=== PATIENT | female | born 1975 | race Caucasian/White ===

== ENCOUNTER 2019-07-08 05:45 | Observation (INO) | payer MEDICARE ==
[2019-07-03 13:56] LABS: BASOPHILS % 0.6 % (0.0-1.0); EOSINOPHILS # (AUTO) 0.1 (0.0-0.4); EOSINOPHILS % 1.9 % (0.0-6.0); HEMOGLOBIN 12.7 g/dL (12.0-16.0); LYMPHOCYTES # (AUTO) 1.8 (1.0-3.2); LYMPHOCYTES % 24.9 % (18.0-39.1); MEAN CORPUSCULAR HEMOGLOBIN 30.8 pg (28-32); MEAN CORPUSCULAR HGB CONC 33.4 g/dL (31-35); MONOCYTES # (AUTO) 0.4 (0.2-0.8); MONOCYTES % 5.8 % (4.4-11.3); NEUTROPHILS # (AUTO) 4.7 (2.1-6.9); NEUTROPHILS % 66.5 % (38.7-80.0); PLATELET COUNT 239 x10e3/uL (140-360); RED BLOOD COUNT 4.13 x10e6/uL (3.6-5.1); RED CELL DISTRIBUTION WIDTH 11.7 % (11.7-14.4)
[2019-07-03 13:57] LABS: BILIRUBIN,URINE NEGATIVE (NEGATIVE); CLARITY,URINE SL CLOUDY (CLEAR); COLOR,URINE YELLOW (YELLOW); KETONES,URINE NEGATIVE (NEGATIVE); LEUKOCYTE ESTERASE ,URINE NEGATIVE (NEGATIVE); NITRITE,URINE NEGATIVE (NEGATIVE); PROTEIN,URINE DIPSTICK NEGATIVE (NEGATIVE); URINE UROBILINOGEN 0.2 mg/dL (0.2 - 1)
[2019-07-03 14:42] LABS: HIV 1&2 AB SCREEN NON-REACTIVE (NONREACTIVE)
--- NOTE | 2019-07-03 14:46 | Diagnostic Imaging Report ---
Exam: PA and lateral chest radiograph Clinical history: Preoperative clearance Findings: There is no evidence of pulmonary consolidation, pleural effusion, or pneumothorax. Thoracolumbar spinal rods are partially visualized. Otherwise, the regional osseous structures are unremarkable. Impression: 1. No radiographic evidence of acute cardiorespiratory disease. Signed by: Dr. Jeremiah Tyler MD on 07/03/2019 2:43 PM
[~2019-07-08] VITALS: Ht 160 cm; Wt 66.7 kg
[~2019-07-08 05:45] MED LIST: HYDROXYZINE HCL10 MG PO; PROMETHAZINE HC25 M1 PO; TIZANIDINE HCL4 MG PO
--- OUTSIDE RECORDS SUMMARY | 2019-07-08 05:53 | XMS REPORT | Continuity of Care Document ---
Author Author [employer] Organization [employer] Address Unknown Phone Unavailable Care Team Providers Care Through Operator Name Role Phone [employer] Unavailable Unavailable Problems Problem Status Onset Date Classification Date Reported Comments Source Mastodynia 05/22/2018 12/02/2018 [facility] [employer]'s N64.4 - MASTODYNIA Active 05/08/2018 [employer] Unspecified lump in the left breast, unspecified quadrant 12/02/2018 [facility] [employer] [facility] Family history of malignant neoplasm of breast 12/02/2018 [facility] [employer] [facility] Medications No Data Provided for This Section Allergies, Adverse Reactions, Alerts No Known Medication Allergies Immunizations No Data Provided for This Section Results No Data Provided for This Section Pathology Reports No Data Provided for This Section Diagnostic Reports Report Value Date Source Breast Complete Uni US COMPLETE ULTRASOUND OF LEFT BREAST AND AXILLA: 05/15/2018 CLINICAL: /N64.4 Mastodynia HISTORY: 43 yo female with left axillary tenderness and swelling x 1year and more pain in the past 2 months. Patient walks with a cane using her right arm. Family history of BREAST cancer: (p) aunt. No prior breast surgeries or biopsies. /Mastodynia. COMPARISON:No prior exams were available for comparison. LEFT BREAST AND AXILLA FINDINGS: The entire left breast was evaluated including all four quadrants, axillary tail, subareolar region and axilla. Directed imaging of the palpable area of concern pointed out by the patient in the left axilla showed only fibrofatty tissues and normal appearing lymph nodes. No abnormalities that would be suspicious for malignancy were identified. No axillary adenopathy. IMPRESSION: BENIGN 1. NO DEFINITE MAMMOGRAPHIC EVIDENCE OF MALIGNANCY IN EITHER BREAST. 2. DIRECTED IMAGING OF THE PALPABLE AREA OF CONCERN POINTED OUT BY THE PATIENT IN THE LEFT AXILLA SHOWED ONLY FIBROFATTY TISSUES WITHOUT EVIDENCE OF A TRUE MASS. NO AXILLARY ADENOPATHY. RECOMMENDATION: 1. PROVIDING HER CLINICAL AND SELF-EXAMINATIONS REMAIN STABLE AND THERE IS NO INTERVAL WORSENING OF HER SYMPTOMALOGY, A BILATERAL MAMMOGRAM IN ONE YEAR. 2. ALSO, IF THE LEFT AXILLARY PALPABLE AREA CONTINUES TO BE A SOURCE OF CONCERN, SUGGEST SHE RETURN FOR FURTHER EVALUATION WITH AN MRI. I personally reviewed the imaging findings and recommendations with the patient. I emphasized to her to practice monthly self-examinations and to return immediately if she should note any concerning changes. This exam was interpreted at [id number] for [facility]. Gloria Chicas M.D. sg/:05/16/2018 14:59:06 Hat Maker(s): Tanya Magallanes, [facility]; Earnestine Hart, [facility] letter sent: BI-RADS 1/2 Ultrasound BI-RADS: 2 Benign 05/15/2018 [facility] Breast Mammo Diag ASHLEY incl CAD MA BILATERAL FIRST EVER DIGITAL DIAGNOSTIC MAMMOGRAM WITH CAD: 05/15/2018 CLINICAL: /N64.4 Mastodynia HISTORY: 43 yo female with left axillary tenderness and swelling x 1year and more pain in the past 2 months. Patient walks with a cane using her right arm. Family history of BREAST cancer: (p) aunt. No prior breast surgeries or biopsies. /Mastodynia. Current study was evaluated with a Computer Aided Detection (CAD) system. COMPARISON:No prior exams were available for comparison. TECHNIQUE: Mammographic views were obtained using digital acquisition. Current study was also evaluated with a Computer Aided Detection (CAD) system. FINDINGS: There are scattered fibroglandular densities in both breasts. LEFT axillary view shows a mild fatty bulge but no adenopathy or suspicious finding. No significant masses, calcifications, or other findings are seen in either breast. IMPRESSION: INCOMPLETE: NEEDS ADDITIONAL IMAGING EVALUATION PLEASE SEE SAME DAY ULTRASOUND REPORT. This exam was interpreted at [id number] for [facility] [employer] [facility]. Gloria Chicas M.D. sg/:05/16/2018 14:59:06 Hat Maker(s): Tanya Magallanes, [facility]; Earnestine Hart, [facility] letter sent: BI-RADS 1/2 Mammogram BI-RADS: 0 Indeterminate 05/15/2018 [facility] Consultation Notes No Data Provided for This Section Discharge Summaries No Data Provided for This Section History and Physicals No Data Provided for This Section Vital Signs No Data Provided for This Section Encounters Location Location Details Encounter Type Encounter Number Reason For Visit Attending Provider ADM Date DC Date Status Source [facility] Outpatient [facility] - [facility] [id number] Pettyivorykaren Kvng 05/15/2018 05/16/2018 [facility] Procedures No Data Provided for This Section Assessment and Plan No Data Provided for This Section Plan of Care No Data Provided for This Section Social History Social History Date Source No data available for this section 05/16/2018 [facility] Family History No Data Provided for This Section Advance Directives No Data Provided for This Section Functional Status No Data Provided for This Section
--- OUTSIDE RECORDS SUMMARY | 2019-07-08 05:53 | XMS REPORT | Clinical Summary ---
Author Author [employer] [facility] [employer] Address Unknown Phone Unavailable Care Team Providers Care Auto Body Shop Manager Name Role Phone Lior Calderon MD PCP Allergies Comments Active Allergy Reactions Severity Noted Date Penicillins 01/09/2017 Sulfa (Sulfonamide 01/09/2017 Antibiotics) Medications End Date Status Medication Sig Dispensed Refills Start Date Active lidocaine (LIDODERM) 5 % Place 1 patch 0 on the skin daily. Remove & Discard patch within 12 hours or as directed by MD Active sertraline (ZOLOFT) 25 MG Take 25 mg by 0 tablet mouth daily. Active diazePAM (VALIUM) 5 MG Take 5 mg by 0 tablet mouth every 6 (six) hours as needed for anxiety. Active morPHINE (MS CONTIN) 100 Take 100 mg 0 MG 12 hr tablet by mouth 2 (two) times a day. Active HYDROcodone-acetaminophen Take 1 tablet 0 (NORCO) 10-325 mg per by mouth tablet every 6 (six) hours as needed for moderate pain. Active tiZANidine (ZANAFLEX) 4 Take 4 mg by 0 MG tablet mouth every 8 (eight) hours as needed for muscle spasms. Active morPHINE (MSIR) 30 MG Take 30 mg by 0 tablet mouth every 4 (four) hours as needed for severe pain. Active Problems No known active problems Encounters Care Team Description Date Type Specialty Loly Castillo MA 06/19/2019 Prep for Orthopedic Surgery Surgery Espinoza Terrazas MD 05/19/2019 Hospital Radiology Encounter Espinoaz Terrazas MD Other kyphosis of thoracolumbar region (Primary Dx); Pseudoarthrosis of lumbar spine; Scoliosis (and kyphoscoliosis), idiopathic 05/19/2019 Office Visit Orthopedic Surgery Cedric Harding PA-C Chronic low back pain without sciatica, unspecified back pain laterality (Primary Dx); Sagittal plane imbalance; Degeneration of intervertebral disc of lumbar region; Adjacent segment disease with kyphosis; Degenerative scoliosis in adult patient 04/21/2019 Office Visit Orthopedic Surgery after 07/07/2018 Family History Medical History Relation Name Comments Hypertension Father Thyroid disease Mother Clotting disorder Neg Hx Relation Name Status Comments Father Mother Social History Date Tobacco Use Types Packs/Day Years Used Started: 01/09/1993 Current Every Day Smoker Cigarettes 0.25 22 Smokeless Tobacco: Never Used Drinks/Week oz/Week Comments Alcohol Use Yes Sex Assigned at Date Recorded Not on file Industry Job Start Date Occupation Not on file Not on file Not on file Travel End Travel History Travel Start No recent travel history available. Last Filed Vital Signs Reading Time Taken Comments Vital Sign 127/79 05/19/2019 10:27 AM CDT Blood Pressure 59 05/19/2019 10:27 AM CDT Pulse 36.6 C (97.9 F) 05/19/2019 10:27 AM CDT Temperature - - Respiratory Rate - - Oxygen Saturation - - Inhaled Oxygen Concentration - - Weight - - Height - - Body Mass Index Plan of Treatment Care Team Description Date [place] [address] 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 Degenerative scoliosis in adult patient CT ABD/PELVIC EXTERNAL Routine 12/11/2018 STUDY 12:53 PM SAND CONDITIONER after 07/07/2018 Results * XR Spine Scoliosos 2-3 Views (04/21/2019 10:43 AM CDT) Specimen Narrative Performed At [facility] AP lateral scoliosis x-ray shows instrumentation from the mid thoracic spine to the distal lumbar spine there is hardware with dominoes through the upper lumbar spine.There is an axial screw through the sacrum and L4 with significant lucency.Comparison CT was reviewed which showed 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 Performing Organization Address City/State/Zipcode Phone Number [employer] [facility] [address] [place] [address] * CT Abd/Pelvic External Study (12/11/2018 12:53 PM SAND CONDITIONER) Specimen Narrative Performed At This exam was not acquired at a [facility] facility and has not been [facility] interpreted by a [employer] Provider.The exam was imported into our imaging system for comparisons purposes. Performing Organization Address City/State/Zipcode Phone Number [employer] [facility] [address] [place] [address] after 07/07/2018 Insurance Type Payer Benefit Subscriber ID Effective Phone Address Plan / Dates Group HMO AETNA MEDICARE AETNA xxxxxxxx 2018-P MEDICARE resent HMO/PPO [facility] [place] [address] Advance Directives For more information, please contact: [phone] Patient Structures Assembler Explanation Type Date Recorded Advance Directives, Living Will and Medical Power of Property Inspector
--- OUTSIDE RECORDS SUMMARY | 2019-07-08 05:53 | XMS REPORT | Summary of Care ---
Author Author [facility] Address Unknown Phone Unavailable Encounter HQ Dieter(FIN) [id number] Date(s): 05/15/18 - 05/15/18 [facility] Outpatient Imaging - [facility] [address] [place] [phone] Encounter Diagnosis Mastodynia (Final) - 05/21/18 Unspecified lump in the left breast, unspecified quadrant (Final) - Family history of malignant neoplasm of breast (Final) - Discharge Disposition: Home or Self Care Attending Physician: Lior Calderon MD Referring Physician: Lior Calderon MD Vital Signs No data available for this section Problem List No data available for this section Allergies, Adverse Reactions, Alerts No data available for this section Medications No data available for this section Results No data available for this section Immunizations No data available for this section Procedures No data available for this section Social History No data available for this section Assessment and Plan No data available for this section
--- OUTSIDE RECORDS SUMMARY | 2019-07-08 05:53 | XMS REPORT ---
Author Author [facility] Address Unknown Phone Unavailable Care Team Providers Care Life Insurance Agent Name Role Phone Tashia HUDSON Unavailable Unavailable Payers Payer Name Policy Type Policy Number Effective Date Expiration Date Problems This patient has no known problems. Allergies, Adverse Reactions, Alerts Allergy Name Allergy Type Status Severity Reaction(s) Onset Date Inactive Date Treating Clinician Comments Penicillins DA Active AR 2016-09-24 00:00:00 Sulfa (Sulfonamide Antibiotics) DA Active U 2016-09-24 00:00:00 Medications This patient has no known medications. Results Test Description Test Time Test Comments Text Results Atomic Results Result Comments CHEST 2 VIEWS 2019-07-03 14:38:00 [place] [address] Patient Name: MAUREEN PARIS MR #: [id number] : 1975 Age/Sex: 44/F Req #: [id number] Adm Physician: Ordered by: NORRIS HUDSON MD Report #: [id number] Location: OR Room/Bed: Procedure: [id number] DX/CHEST 2 VIEWS Exam Date: 07/03/19 Exam Time: 1405 REPORT STATUS: Signed Exam: PA and lateral chest radiograph Clinical history: Preoperative clearance Findings: There is no evidence of pulmonary consolidation, pleural effusion, or pneumothorax. Thoracolumbar spinal rods are partially visualized. Otherwise, the regional osseous structures are unremarkable. Impression: 1. No radiographic evidence of acute cardiorespiratory disease. Signed by: Dr. Jeremiah Tyler MD on 07/03/2019 2:43 PM Dictated By: TRUONG TYLER MD 1443 Transcribed By: ANGELIA on 07/03/19 1443 COPY TO: NORRIS HUDSON MD - CT ABD PELVIS W/CONT 2019-05-29 23:11:00 FAX: Sheri Domingo [phone] [place]: St: REG Name: MAUREEN PARIS [facility] : 1975 Age/S: 44/F [address] [facility] [address] Unit: [id number] Loc: [place], [place] Phys: [place] [address] Acct: [id number] Dis Date: Status: REG CLI PHONE #: [phone] Exam Date: 05/29/2019 1824 FAX #: [phone] Reason: PELVIC PAIN, EXCESSIVE BLEEDING, DYSMENORRHEA EXAMS: CPT CODE: [id number] CT ABD PELVIS W/CONT 02391 Site ID: [id number] CLINICAL HISTORY: N92.4, N80.8 TECHNIQUE: Axial images of the abdomen and pelvis were obtained from diaphragm to the pubic symphysis with oral and intravenous contrast. CT dose lowering technique utilized, with adjustment of MA/kV according to patient size and automated exposure control. COMPARISON: Pelvic ultrasound of the same day, CT abdomen and pelvis May 02, 2018 DISCUSSION: The lung bases are clear. The heart size is normal. The liver is normal in size and contour, without focal abnormality. The gallbladder is unremarkable. No biliary ductal dilatation. The spleen, pancreas and adrenal glands are unremarkable. Both kidneys are normal in size. No hydronephrosis or enhancing renal mass. Vascular structures are normal in caliber and appearance. Retroaortic left renal vein is noted. The small and large bowel are unremarkable. No abdominal, pelvic or retroperitoneal adenopathy. Uterus is normal in size, a 2 cm partially exophytic right fundal fibroid is present, obscured sonographically due to location adjacent to bowel. Within the left ovary, there are 2 small cysts measuring up to 2.5 cm, slightly higher than simple fluid density. No ascites. Urinary bladder is normal. Osseous structures are unchanged. IMPRESSION: 1. 2 cm partially exophytic right fundal fibroid, obscured sonographically due to location adjacent to bowel. PAGE 1 Signed Report (CONTINUED) FAX: Sheri Domingo [phone] [place]: St: REG Name: MAUREEN PARIS [facility] : 1975 Age/S: 44/F [address] [facility] [address] Unit: [id number] Loc: [place], [place]: [place] [address] Acct: [id number] Dis Date: Status: REG CLI PHONE #: [phone] Exam Date: 05/29/2019 1824 FAX #: [phone] Reason: PELVIC PAIN, EXCESSIVE BLEEDING, DYSMENORRHEA EXAMS: CPT CODE: [id number] CT ABD PELVIS W/CONT 93343 <Continued> 2. Within the left ovary, there are 2 small cysts measuring up to 2.5 cm, slightly higher than simple fluid density. at 2311 Reported and signed by: Phong Nair M.D. CC: Sheri Leyva MD Technologist: BRITTANY Hernandez Dt/Tm: 05/29/2019 (2311) [email or web address] Orig Print D/T: S: 05/29/2019 (8144 PAGE 2 Signed Report - DUP AB/PEL/SC COMP 2019-05-29 19:05:00 FAX: Sheri Domingo [phone] [place]: St: REG Name: [place] [facility] : 1975 Age/S: 44/F [address] [facility] Unit #: [id number] Loc: [place], [place]: [place] [address] Acct: [id number] Dis Date: Status: REG CLI PHONE #: [phone] Exam Date: 05/29/2019 1846 FAX #: [phone] Reason: primary dysmenorrhea EXAMS: CPT CODE: [id number] DUP AB/PEL/SC COMP 55863 ULTRASOUND OF THE PELVIS COMPLETE ULTRASOUND PELVIS TRANSVAGINAL DUPLEX PELVIS LIMITED Dictation Location: N13 CLINICAL HISTORY: Primary dysmenorrhea COMPARISON: None. TECHNIQUE: Ultrasound of the pelvis was obtained using transabdominal and transvaginal technique. Real-time grayscale, color and spectral Doppler imaging was performed. FINDINGS: The uterus measures 7.8 x 4.1 x 5.2 cm, normal in size, shape, and echogenicity. No evidence of enlargement or fibroids. No evidence of congenital anomalies. The endometrial stripe measures 1.1 cm, normal in thickness. Right ovary measures 2.7 x 2.9 x 5.1 cm. Left ovary measures 4.2 x 2.3 x 1.8 cm. Both ovaries are normal in size for the patient's age without suspicious masses or torsion. Normal arterial inflow and venous outflow of each ovary was demonstrated using spectral Doppler. No evidence of free fluid in the cul-de-sac. No separate pelvic mass is demonstrated. IMPRESSION: Normal pelvic ultrasound. at 1905 Reported and signed by: Sana Salter M.D. CC: Sheri Leyva MD Technologist: CAROL CARTER Trnscrd Date/Time/By: 05/29/20 19 (1904) : By: Chalino PAGE 1 Signed Report FAX: Sheri Domingo [phone] [place]: St: REG Name: MAUREEN PARIS [facility] : 1975 Age/S: 44/F [address] [facility] Unit #: [id number] Loc: [place], [place]: [place] [address] Acct: [id number] Dis Date: Status: REG CLI PHONE #: [phone] Exam Date: 05/29/2019 1846 FAX #: [phone] Reason: primary dysmenorrhea EXAMS: CPT CODE: [id number] DUP AB/PEL/SC COMP 40675 <Continued> Orig Print D/T: S: 05/29/2019 (1908) PAGE 2 Signed Report - US TRANSVAGINAL NON OB 2019-05-29 19:05:00 FAX: Sheri Domingo [phone] [place]: St: REG [facility] 1975 Age/S: 44/F [address] [facility] Unit #: [id number] Loc: [place], [place]: [place] [address] Acct: [id number] Dis Date: Status: REG CLI PHONE #: [phone] Exam Date: 05/29/2019 1845 FAX #: [phone] Reason: primary dysmenorrhea EXAMS: CPT CODE: [id number] [place] [address] ULTRASOUND OF THE PELVIS COMPLETE ULTRASOUND PELVIS TRANSVAGINAL DUPLEX PELVIS LIMITED Dictation Location: N13 CLINICAL HISTORY: Primary dysmenorrhea COMPARISON: None. TECHNIQUE: Ultrasound of the pelvis was obtained using transabdominal and transvaginal technique. Real-time grayscale, color and spectral Doppler imaging was performed. FINDINGS: The uterus measures 7.8 x 4.1 x 5.2 cm, normal in size, shape, and echogenicity. No evidence of enlargement or fibroids. No evidence of congenital anomalies. The endometrial stripe measures 1.1 cm, normal in thickness. Right ovary measures 2.7 x 2.9 x 5.1 cm. Left ovary measures 4.2 x 2.3 x 1.8 cm. Both ovaries are normal in size for the patient's age without suspicious masses or torsion. Normal arterial inflow and venous outflow of each ovary was demonstrated using spectral Doppler. No evidence of free fluid in the cul-de-sac. No separate pelvic mass is demonstrated. IMPRESSION: Normal pelvic ultrasound. at 1905 Reported and signed by: Sana Salter M.D. CC: Sheri Leyva MD Technologist: [id number] 1; CAROL CARTER Trnscrd Date/Time/By: 05/29/2019 (1905) : By: [email or web address] PAGE 1 Signed Report FAX: Sheri Domingo [phone] [place]: St: REG Name: MAUREEN PARIS [facility] : 1975 Age/S: 44/F [address] [facility] Unit #: [id number] Loc: [place], [place]: [place] [address] Acct: [id number] Dis Date: Status: REG CLI PHONE #: [phone] Exam Date: 05/29/2019 1845 FAX #: [phone] Reason: primary dysmenorrhea EXAMS: CPT CODE: [id number] [place] [address] <Continued> Orig Print D/T: S: 05/29/2019 (1908) PAGE 2 Signed Report - US PELVIS COMPLETE 2019-05-29 19:05:00 FAX: Sheri Domingo [phone] [place]: St: REG Name: MAUREEN PARIS [facility] : 1975 Age/S: 44/F [address] Unit #: [id number] Loc: [place]: [place] [address] Acct: [id number] Dis Date: Status: REG CLI PHONE #: [phone] Exam Date: 05/29/2019 1845 FAX #: [phone] Reason: primary dysmenorrhea EXAMS: CPT CODE: [id number] US PELVIS COMPLETE 85922 ULTRASOUND OF THE PELVIS COMPLETE ULTRASOUND PELVIS TRANSVAGINAL DUPLEX PELVIS LIMITED Dictation Location: N13 CLINICAL HISTORY: Primary dysmenorrhea COMPARISON: None. TECHNIQUE: Ultrasound of the pelvis was obtained using transabdominal and transvaginal technique. Real-time grayscale, color and spectral Doppler imaging was performed. FINDINGS: The uterus measures 7.8 x 4.1 x 5.2 cm, normal in size, shape, and echogenicity. No evidence of enlargement or fibroids. No evidence of congenital anomalies. The endometrial stripe measures 1.1 cm, normal in thickness. Right ovary measures 2.7 x 2.9 x 5.1 cm. Left ovary measures 4.2 x 2.3 x 1.8 cm. Both ovaries are normal in size for the patient's age without suspicious masses or torsion. Normal arterial inflow and venous outflow of each ovary was demonstrated using spectral Doppler. No evidence of free fluid in the cul-de-sac. No separate pelvic mass is demonstrated. IMPRESSION: Normal pelvic ultrasound. at 1905 Reported and signed by: Sana Salter M.D. CC: Sheri Leyva MD Technologist: CAROL CARTER Trnscrd Date/Time/By: 05/29/20 19 (1904) : By: CadyMVT PAGE 1 Signed Report FAX: Sheri Domingo [phone] [place]: St: REG Name: MAUREEN PARIS [facility] : 1975 Age/S: 44/F [address] [facility] Unit #: [id number] Loc: [place], [place]: [place] [address] Acct: [id number] Dis Date: Status: REG CLI PHONE #: [phone] Exam Date: 05/29/2019 1845 FAX #: [phone] Reason: primary dysmenorrhea EXAMS: CPT CODE: [id number] US PELVIS COMPLETE 16321 <Continued> Orig Print D/T: S: 05/29/2019 (2454) PAGE 2 Signed Report
--- OUTSIDE RECORDS SUMMARY | 2019-07-08 05:53 | XMS REPORT | Summary of Care ---
Author Author [facility] - Health Organization [facility] - Health Address Unknown Phone Unavailable Care Team Providers Care Dyeing Machine Back Tender Name Role Phone Iggy Mathew REMOTE CONTROL MIRROR INSTALLER PCP Unavailable Encounter Details Care Team Description Date Type Department Doctor Unassigned, [place] [address] [place] [address] 05/19/2019 Orders Only [facility] [address] [place] [address] Allergies Comments Active Allergy Reactions Severity Noted Date Penicillins Unknown - See 04/17/2006 comments Sulfa (Sulfonamide Unknown - See 04/17/2006 Antibiotics) comments documented as of this encounter (statuses as of 05/20/2019) Medications End Date Status Medication Sig Dispensed Refills Start Date Active LIDOCAINE 5 %(700 1 patch 0 MG/PATCH) TOPICAL PTMD daily; 12 hours on/12 hours off Active IBUPROFEN 600 MG ORAL TAB 1 tab TID 0 Active diazepam (VALIUM) 10 mg Take 10 mg by 0 tabletIndications: mouth 3 Ekbom's delusional (three) times parasitosis daily. Active morpHINE E.R. (MS CONTIN) Take 100 mg 0 100 mg SR by mouth tabletIndications: every 12 Ekbom's delusional (twelve) parasitosis hours. Active morpHINE I.R. (MSIR) 30 Take 30 mg by 0 mg tabletIndications: mouth every 4 Ekbom's delusional (four) hours parasitosis as needed. 1/2 tablet Active etodolac (LODINE) 400 mg Take 400 mg 0 tabletIndications: by mouth 2 Ekbom's delusional (two) times parasitosis daily. Active chlorhexidine (HIBICLENS) Apply to 120 mL 0 4 % external area(s) once 3 liquidIndications: daily as Ekbom's delusional needed for parasitosis Wound care. Active gabapentin enacarbil Take 300 mg 0 (HORIZANT) 300 mg TbSR by mouth 3 (three) times daily. Active tiZANidine (ZANAFLEX) 4 Take 4 mg by 0 mg capsule mouth 3 (three) times daily. Active doxepin (SINEQUAN) 10 mg TAKE 2 CAPS 60 Cap 5 capsule BY MOUTH AT 4 BEDTIME. Active SERTraline (ZOLOFT) 100 Take 1.5 Tabs 45 Tab 6 mg tabletIndications: by mouth 4 Depression daily. Active ranitidine (ZANTAC) 150 Take 1 Tab by 180 Tab 1 mg tabletIndications: mouth 2 (two) 4 Reflux times daily. Active butalbital-acetaminophen- Take 1 tablet 20 tablet 0 caff 50-325-40 mg tablet by mouth 8 every 4 (four) hours as needed for Pain (scale 1-3). Active ibuprofen 600 mg tablet Take 1 tablet 30 tablet 0 by mouth 8 every 6 (six) hours as needed for Pain (scale 1-3). Active naproxen 500 mg tablet Take 1 tablet 60 tablet 0 by mouth 2 8 (two) times daily with meals. Active nortriptyline 10 mg Take 1 90 capsule 0 capsule capsule by 8 mouth daily. Take 1 capsule daily for 5 days then 2 capsules for the next 5 days then take 3 capsules after that Active psyllium 1 full scoop 0 packetIndications: of metamucil 8 Diarrhea, unspecified and 4 ounces type (1/2 dose of water). Try this M, W F, 1 dose each day. Active Simethicone 125 mg Take 1 tablet 0 TabIndications: Gas bloat by mouth 2 8 syndrome (two) times daily. Active tizanidine HCl Take by 0 (TIZANIDINE ORAL) mouth. Active HYDROXYZINE HCL ORAL Take by 0 mouth. Active acetaminophen (TYLENOL 8 Take by 0 HOUR ORAL) mouth. 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 Kyphoscoliosis deformity of spine 05/19/2008 documented as of this encounter (statuses as of 05/20/2019) Resolved Problems Problem Noted Date Resolved Date Skin parasites 03/02/2013 03/02/2013 documented as of this encounter (statuses as of 05/20/2019) Social History Date Tobacco Use Types Packs/Day Years Used Former Smoker Cigarettes 1 20 Smokeless Tobacco: Current User Comments: Quit 5 months ago Drinks/Week oz/Week Comments Alcohol Use seldom Yes Sex Assigned at Date Recorded Not on file Industry Job Start Date Occupation Not on file Not on file Not on file Travel End Travel History Travel Start No recent travel history available. documented as of this encounter Last Filed Vital Signs Not on filedocumented in this encounter Plan of Treatment Health Maintenance Due Date Last Done Comments DTaP,Tdap,and Td Vaccines 1993 (1 - Tdap) MAMMOGRAM 2014 INFLUENZA VACCINE 06/21/2019 PAP SMEAR 03/17/2022 03/17/2019 PNEUMOCOCCAL 0-64 YEARS Aged Out No longer eligible based COMBINED SERIES on patient's age to complete this topic documented as of this encounter Procedures Comments Procedure Name Priority Date/Time Associated Diagnosis AUTHORIZATION FOR RELEASE Routine 05/19/2019 OF PHI 12:01 AM CDT documented in this encounter Results Not on filedocumented in this encounter Insurance Type Payer Benefit Subscriber ID Effective Phone Address Plan / Dates Group Medicare Adv PPO AETNA - MANAGED MEDICARE AETNA [id number] 2018- [address] MEDICARE Present [id number] [place] [id number] documented as of this encounter Advance Directives Patient Cigarette Tester Explanation Type Date Recorded Advance Directives and Living Will Power of Pile Driver Operator Barge Mounted
[2019-07-08] MEDS ORDERED: CEFOXITIN 2GM/ D5W 50ML 50 ML IV ONE (05:58)
[2019-07-08] MEDS ORDERED: METOCLOPRAMIDE HCL 10 MG/2ML VIAL ONE (06:53)
[2019-07-08] MEDS ORDERED: SODIUM CHLORIDE 0.9% 50ML 50 ML ONE (06:53)
[2019-07-08] MEDS ORDERED: FAMOTIDINE 20 MG/2 ML VIAL IV ONE (06:54)
[2019-07-08] MEDS ORDERED: IBUPROFEN 800MG/ 250ML 250 ML IV ONE (09:00)
[2019-07-08] MEDS ORDERED: BUPIVACAINE LIPOSOME/PF 266 MG/20 ML IJ ONE (09:16)
[2019-07-08] MEDS ORDERED: BUPIVACAINE 0.25%/EPI 30ML SDV INJ ONE (09:34)
[2019-07-08] MEDS ORDERED: MEPERIDINE HCL INJ 25 MG/ML VIAL ONE (10:12)
[2019-07-08] MEDS ORDERED: ACETAMINOPHEN 1000 MG/100 ML IV PRN ×2 (10:30→12:00)
[2019-07-08] MEDS ORDERED: ONDANSETRON HCL INJ 2MG/ML 2ML 2 MG/ML VIAL IV PRN (10:30)
[2019-07-08] MEDS ORDERED: NALOXONE HCL INJ 0.4 MG/ML AMP IV PRN (10:30)
[2019-07-08] MEDS ORDERED: HYDROMORPHONE 0.2MG/ML-SOD CHL 30ML PCA SYRINGE IV PRN ×2 (10:30→12:00)
[2019-07-08] MEDS ORDERED: KETOROLAC TROMETHAMINE 30 MG/ML VIAL IV PRN (10:30)
[2019-07-08] MEDS: KETOROLAC TROMETHAMINE 30 MG/ML VIAL IV PRN ×3 (10:31→20:30)
[2019-07-08] MEDS ORDERED: KETOROLAC TROMETHAMINE 30 MG/ML VIAL ONE ×2 (10:34→20:00)
--- OUTSIDE RECORDS SUMMARY | 2019-07-08 11:06 | XMS REPORT | Clinical Summary ---
Author Author [facility] Address Unknown Phone Unavailable Care Team Providers Care Drum Tender Name Role Phone Lior Calderon MD PCP [...] Espinoza Terrazas MD 05/19/2019 Hospital Radiology Encounter Espinoza Terrazas MD Other kyphosis of thoracolumbar region [...] Description Date [place] [address] [facility] [address] [place] [address] [phone] 07/28/2019 Office Visit Orthopedic Surgery Health Maintenance [...] ABD/PELVIC EXTERNAL Routine 12/11/2018 STUDY 12:53 PM HARNESS REPAIRER after 07/07/2018 Results * XR Spine Scoliosos [...] noted. Performing Organization Address City/State/Zipcode Phone Number [email or web address] [address] [place] [address] * CT Abd/Pelvic External Study (12/11/2018 12:53 PM HARNESS REPAIRER) Specimen Narrative Performed At This exam was not acquired at a [facility] facility and has not been [facility] interpreted by a [facility] Provider.The exam was imported into our imaging system for comparisons purposes. Performing Organization Address City/State/Zipcode Phone Number [email or web address] [address] [place] [address] after 07/07/2018 Insurance Type Payer Benefit Subscriber ID Effective Phone Address Plan / Dates Group HMO AETNA MEDICARE AETNA xxxxxxxx 2018-P MEDICARE resent HMO/PPO [facility] ([place]) [place] [address] Advance Directives For more information, please contact: [phone] Patient Head Loft Worker Explanation Type Date Recorded Advance Directives, Living Will and Medical Power of Machine Bender
--- OUTSIDE RECORDS SUMMARY | 2019-07-08 11:06 | XMS REPORT | Continuity of Care Document ---
Author Author [facility] Organization [facility] Address Unknown Phone Unavailable Care Team Providers Care Chemical Engraver Name Role Phone [facility] [employer] Unavailable Unavailable Problems Problem Status Onset Date Classification Date Reported Comments Source Mastodynia 05/22/2018 12/02/2018 [facility] [employer] N64.4 - MASTODYNIA Active 05/08/2018 [facility] Unspecified lump in the left breast, unspecified quadrant 12/02/2018 [facility] [employer] [facility] Family history of malignant neoplasm of breast 12/02/2018 [facility] [employer] [facility] Medications No Data Provided for This [...] concerning changes. This exam was interpreted at [id number] for [facility] [employer] [facility]. Gloria Chicas M.D. sg/:05/16/2018 14:59:06 Sole Molding Machine Operator(s): Tanya Magallanes, [facility]; Earnestine Hart, [facility] letter sent: BI-RADS 1/2 Ultrasound BI-RADS: 2 Benign 05/15/2018 [facility] Breast Mammo Diag ASHLEY incl [...] ULTRASOUND REPORT. This exam was interpreted at [id number] for [facility] [employer] [facility]. Gloria Chicas M.D. sg/:05/16/2018 14:59:06 Sole Molding Machine Operator(s): Tanya Magallanes, [facility]; Earnestine Hart, [facility] letter sent: BI-RADS 1/2 Mammogram BI-RADS: 0 Indeterminate 05/15/2018 [facility] Consultation Notes No Data Provided for This Section Discharge Summaries No Data Provided for This Section History and Physicals No Data Provided for This Section Vital Signs No Data Provided for This Section Encounters Location Location Details Encounter Type Encounter Number Reason For Visit Attending Provider ADM Date DC Date Status Source [facility] - [facility] [id number] [facility] 05/15/2018 05/16/2018 [facility] Procedures No Data Provided for This Section Assessment and Plan No Data Provided for This Section Plan of Care No Data Provided for This Section Social History Social History Date Source No data available for this section 05/16/2018 [facility] Family History No Data Provided for This Section Advance Directives No Data Provided for This Section Functional Status No Data Provided for This Section
[2019-07-08 11:49] VITALS: BP 99/62
[2019-07-08 12:04] VITALS: BP 99/62
[2019-07-08 12:10] VITALS: BP 99/62
--- NOTE | 2019-07-08 12:21 | NUR ---
patient received from OR via stretcher. see admit assess. family at BS. abdomen midline incision with island dressing and abd binder in place. FORMING MACHINE OPERATOR dilaudid in place and patient instructed to use.
[2019-07-08] MEDS: CEFOXITIN SOD 1 GM in SODIUM CHLORIDE 0.9% 50ML 50 ML IV SCH ×2 (13:57→19:50)
[2019-07-08] MEDS: DIPHENHYDRAMINE HCL 25 MG CAP PO PRN ×2 (13:57→18:17)
[2019-07-08] MEDS ORDERED: CEFOXITIN 1GM/ D5W 50ML 50 ML IV SCH (14:00)
[2019-07-08] MEDS ORDERED: FENTANYL CITRATE/PF 100MCG/2 ML INJ ONE (14:53)
[2019-07-08] MEDS ORDERED: MORPHINE SULFATE INJ 10 MG/ML ONE (14:53)
[2019-07-08] MEDS ORDERED: MIDAZOLAM HCL 2 MG/2 ML VIAL ONE (14:53)
[2019-07-08 15:32] VITALS: BP 87/52
--- NOTE | 2019-07-08 16:11 | Operative Report ---
DATE OF PROCEDURE: 07/08/2019 SURGEON: Reji Wu MD PREOPERATIVE DIAGNOSIS: A 44-year-old white female, 2, para 1 with pelvic and lower abdominal pain, especially left lower quadrant and heavy painful periods, and past history of endometriosis affecting her lifestyle. POSTOPERATIVE DIAGNOSES: 1. A 44-year-old white female, 2, para 1 with pelvic and lower abdominal pain, especially left lower quadrant and heavy painful periods, and past history of endometriosis affecting her lifestyle. 2. Right ovarian cystic mass, possible endometrioma about 6 to 8 cm size. 3. Scarring of both the tubes at the site of tubal ligation. 4. Left ovary is normal. SURGICAL PROCEDURES DONE: 1. Examination under anesthesia. 2. Total abdominal hysterectomy and right salpingo-oophorectomy. 3. Left salpingectomy. ACCOUNTING MACHINE OPERATOR: Chidi Ceron M.D. ANESTHESIA: General. FINDINGS AT THE TIME OF SURGERY: On EUA, cervix looks normal. Uterus felt slightly enlarged. No adnexal masses felt on laparotomy. The uterus is slightly enlarged. There is a small fibroid about 4 cm size, subserous, hanging from the right cornua of the uterus. Left ovary looks normal. Right ovary is enlarged, bluish, cystic enlargement about 6 to 8 cm size possible endometrioma. There is a lot of scarring around the tubal ligation site on both tubes, possibly causing the pain and no pelvic adhesions or endometriosis. ESTIMATED BLOOD LOSS: Around 100 mL. No transfusions. SPECIMENS SENT: Uterus, right ovary, and both fallopian tubes for the Pathology. DRAINS: The Deleon catheter is in the bladder draining clear urine. PROCEDURE IN DETAIL: The patient was brought to the operating room, put in the supine position, adjusted her position for the scoliosis with the pillows like the patient wanted. Then, the general anesthesia was given without any problems. After adequate anesthesia, the patient was examined under anesthesia, the findings were as dictated above. Then, she was prepped and draped in the routine fashion and proceeded with the surgery. I made a low transverse Pfannenstiel skin incision, taken down to the fascia. Fascia was opened in a transverse fashion. Recti muscles were longitudinal, identified the parietal peritoneum, opened and entered the abdominal cavity without any problems. Then, I put in the O'Shaan-O'Cruz retractor in the incision for the better exposure and packed the bowels up, and put in the upper blade and then the lower blade. The fundus of the uterus was held with [place] clamp and visualized both the ovaries and the cul-de-sac. The left ovary looks normal. Like I dictated, both tubes, there was lot of scarring around the tubal ligation site and the right ovary was enlarged about bluish color cystic mass, possible endometrioma about 6 to 8 cm size. Then, planned to remove the right ovary and both the tubes, and keep the left ovary, and proceeded with the surgery. Round ligaments on either side clamped with the LigaSure. Clamped, cauterized, and cut on both sides close to the uterus. Then, bladder flap of the peritoneum opened in the midline and extended all the way up to the stumps of the round ligaments, and dissected and pushed down the bladder all the way down. Then, on the right side, decided to remove the ovary and isolated the infundibulopelvic ligament, clamped with the LigaSure close to the ovary, cauterized twice, and cut without any problems, and the hemostasis was satisfactory. On the left side, decided to keep the ovary, and tubes and ovarian ligament clamped close to the uterus with the LigaSure, cauterized and then cut. Then, we the fallopian tube, and at the base of it clamped and cauterized, and cut with the LigaSure, and removed the fallopian tube on the left side. Then, dissected the posterior peritoneum, and the ureters were far away, bladder was dissected down some more with sharp dissection and pushed down. Then, the uterine vessels were isolated and clamped with LigaSure, cauterized twice, and cut. No problems. The hemostasis was good. Then, with the straight Alin clamps, we clamped the cardinal ligaments on either side close to the uterus, cut towards the uterus with the knife and suture ligated using 1-0 Vicryl. Suture tie snugged and cut short. I had to take 2 bites on either side for the cardinal ligaments. Then, uterosacral ligaments on either side clamped close to the uterus to make ensure the bladder was down all the way and the ureters were far away, and cut toward the cervix with the knife, and suture ligated using 1-0 Vicryl. Suture tie snugged and cut short. We were all the way up to the angles of the vagina, then clamped on either side with right-angled clamps after making sure the bladder was away and the ureter was away, and cut with the knife. We were all the way into the vagina, the anterior vaginal wall, posterior vaginal wall, and removed the uterus along with the right ovary, and right fallopian tube, and sent for the Pathology, and left fallopian tube also sent for the Pathology. Then, the angles were sutures ligated using #1 Vicryl with transfixation sutures. Suture tie snugged and held on with a hemostat, and the vaginal vault closed with [id number] interrupted sutures using #1 Vicryl. All the sutures were tie snugged. After anchoring the stumps of the uterosacral ligaments, all the sutures were tie snugged and cut short. The hemostasis was satisfactory. Irrigated the pelvis twice and there was no active bleeding anywhere. All the stumps looked dry. Then, injected the Exparel about 5 mL into the vaginal vault to help with postoperative pain and removed all the laps, and O'Shaan-O'Cruz retractor. Closed the abdominal wall in layers. Parietal peritoneum was closed with 3-0 Vicryl with continuous stitches, then injected the Exparel about 15 mL, remaining 15 mL into the abdominal wall. The fascia was closed with #1 Vicryl using 2 sutures starting at the corners and ending in the midline. Subcutaneous tissue approximated with 3-0 Vicryl with continuous stitches and the skin approximated with the 4-0 Vicryl using the subcuticular stitch. The patient tolerated the procedure well. There were no complications. Estimated blood loss around 100 mL. No transfusions. Instrument and swab counts were correct. The Deleon catheter was in the bladder draining the clear urine. Also, injected the Marcaine with epi into the skin along the incision for the postoperative pain relief. Reji Wu MD NR/MODL /[id number]
--- NOTE | 2019-07-08 18:48 | NUR ---
Walking rounds done. ASSOCIATE PROFESSOR OF PHILOSOPHY checked. Lower abdominal dressing with some drainage. Patient continues to c/o itchiness, nausea and unable to keep liquids down, possibly related to IV Dilaudid ASSOCIATE PROFESSOR OF PHILOSOPHY. Patient stated," don't call her, its not that bad." Day nurse medicated patient for N/V/itchiness. Will continue to monitor. Call salinas within reach. Mom at bedside.
[2019-07-08] MEDS ORDERED: NEOSTIGMINE 5 MG/5ML SYR ONE (20:00)
[2019-07-08] MEDS ORDERED: ONDANSETRON HCL INJ 2MG/ML 2ML 2 MG/ML VIAL ONE (20:00)
[2019-07-08] MEDS ORDERED: SEVOFLURANE INHAL SOLN 250 ML PEN BTL ONE (20:00)
[2019-07-08] MEDS ORDERED: ROCURONIUM BROMIDE 10 MG/ML 5ML VIAL ONE (20:00)
[2019-07-08] MEDS ORDERED: DEXAMETHASONE SOD PHOS INJ 4 MG/ML VIAL ONE (20:00)
[2019-07-08] MEDS ORDERED: LIDOCAINE HCL 2% LOCAL INJ 5 ML SDV VIAL INJ ONE (20:00)
[2019-07-08] MEDS ORDERED: GLYCOPYRROLATE INJ 1MG/ 5 ML SYR ONE (20:00)
[2019-07-08] MEDS ORDERED: PROPOFOL IV EMULSION 10 MG/ML 20 ML VIAL ONE (20:00)
[2019-07-08] MEDS ORDERED: PHENYLEPHRINE HCL 1% 10 MG/ML VIAL ONE (20:00)
[2019-07-08] MEDS ORDERED: PROMETHAZINE 12.5MG/ NACL 0.9% 50 ML IV PRN (20:30)
[2019-07-08] MEDS ORDERED: PROMETHAZINE 12.5MG/ NACL 0.9% 12.5 MG/50 ML BAG IV PRN (20:30)
[2019-07-08] MEDS ORDERED: PROMETHAZINE 12.5MG/ NACL 0.9% 12.5 MG/50 ML BAG IV ONE (20:30)
[2019-07-08] MEDS ORDERED: PROMETHAZINE 12.5MG/ NACL 0.9% 50 ML IV ONE ×2 (20:30→21:00)
--- NOTE | 2019-07-08 20:30 | NUR ---
Dilaudid ELECTRONIC EQUIPMENT REPAIRMEN stopped per MD order, IVF bolus [id number], Phenergan 12.5 IVPBx1, Toradol IV ordered see EMAR. If N/V/itchiness improves ELECTRONIC EQUIPMENT REPAIRMEN will be discontinued per MD order. Orders explained to patient and verbalized understanding.
[2019-07-08 20:31] VITALS: BP 115/60
[2019-07-08] MEDS: DEXTROSE 5%/LACTATED RINGERS 1,000 ML IV SCH (20:34)
[2019-07-08 21:02] VITALS: BP 115/60
--- NOTE | 2019-07-08 21:15 | NUR ---
Nausea and itchiness improved. Patient was able to keep down pudding. Pain is tolerable 3/10 scale.
[2019-07-09 00:12] VITALS: BP 105/58
[2019-07-09] MEDS: CEFOXITIN SOD 1 GM in SODIUM CHLORIDE 0.9% 50ML 50 ML IV SCH ×2 (02:26→08:30)
[2019-07-09] MEDS: DEXTROSE 5%/LACTATED RINGERS 1,000 ML IV SCH ×2 (04:37→12:15)
[2019-07-09 04:46] VITALS: BP 93/58
[2019-07-09 05:36] LABS: BASOPHILS % 0.2 % (0.0-1.0); EOSINOPHILS % 0.3 % (0.0-6.0); HEMATOCRIT 27.5 % (34.2-44.1); HEMOGLOBIN 9.1 g/dL (12.0-16.0); LYMPHOCYTES % 19.5 % (18.0-39.1); MEAN CORPUSCULAR HGB CONC 33.1 g/dL (31-35); MEAN CORPUSCULAR VOLUME 93.5 fL (81-99); MONOCYTES # (AUTO) 0.8 (0.2-0.8); MONOCYTES % 7.7 % (4.4-11.3); NEUTROPHILS # (AUTO) 7.5 (2.1-6.9); NEUTROPHILS % 71.9 % (38.7-80.0); PLATELET COUNT 192 x10e3/uL (140-360); RED BLOOD COUNT 2.94 x10e6/uL (3.6-5.1); RED CELL DISTRIBUTION WIDTH 11.9 % (11.7-14.4)
[2019-07-09 05:59] LABS: ALBUMIN 2.8 g/dL (3.5-5.0); ALBUMIN/GLOBULIN RATIO 1.1 (0.8-2.0); ANION GAP 9.8 mmol/L (8-16); CALCIUM 8.5 mg/dL (8.4-10.2); CREATININE, SERUM 1.06 mg/dL (0.57-1.11); POTASSIUM 3.8 mmol/L (3.5-5.1)
--- NOTE | 2019-07-09 06:25 | NUR ---
Deleon catheter discontinued as ordered. Pt tolerated well.
--- NOTE | 2019-07-09 07:09 | NUR ---
Walking rounds done and report given. Call salinas within reach.
--- NOTE | 2019-07-09 07:15 | NUR ---
Rcvd patient in report this am. Patient is asleep in bed at this time. No s/s of distress noted
[2019-07-09] MEDS: KETOROLAC TROMETHAMINE 30 MG/ML VIAL IV PRN (07:33)
[2019-07-09 07:34] VITALS: BP 83/51
[2019-07-09] MEDS ORDERED: IBUPROFEN 400 MG TAB PO PRN (08:45)
[2019-07-09] MEDS ORDERED: HYDROCODONE/APAP 5MG-325MG TAB PO PRN (08:45)
--- NOTE | 2019-07-09 10:00 | NUR ---
Patient voided at this time and had a small BM
[2019-07-09 11:32] VITALS: BP 96/55
[2019-07-09 11:39] VITALS: BP 96/55
[2019-07-09] MEDS ORDERED: HEMOCYTE PLUS1 EACH PO (14:35)
[2019-07-09] MEDS ORDERED: TYLENOL WITH C1 EACH PO (14:35)
[2019-07-09] MEDS ORDERED: COLACE100 MG PO (14:35)
== END 2019-07-09 15:25 | disposition home or self-care (01) ==
LOC: OR 05:45 → PACU V 11:03 → IMCU 11:44
PROVIDERS: ADMIT Specialist; ATTEND Specialist
DX: D25.2 Subserosal leiomyoma of uterus (principal); N92.0 Excessive and frequent menstruation with regular cycle; N83.201 Unspecified ovarian cyst, right side; N72 Inflammatory disease of cervix uteri; B67.99 Other echinococcosis
CPT/HCPCS: 36415 ×2; 58150; 71046; 80053; 81003; 84702; 85025 ×2; 86850; 86900; 87390; 88307; 93005; C9290; G0378 ×2; G0433; G0435; J0131; J0694 ×2; J1100; J1885 ×2; J2001; J2175; J2250; J2270; J2370; J2405; J2550; J2704; J2765; J3010; J3490; J7121 ×2